=== PATIENT | female | born 1955 | race Caucasian/White ===

== ENCOUNTER → 2021-08-08 11:59 | Outpatient (CLI) | payer MEDICARE, OTHER, SELFPAY ==
--- NOTE | ~2021-08-08 | US_ITS ---
EXAMINATION: US thyroid DATE: 08/08/2021 12:24 INDICATION: Enlarged thyroid. TECHNIQUE: Multiple ultrasound images of the thyroid were obtained. COMPARISON: None. FINDINGS: The right thyroid lobe measures 6.4 x 2.0 x 2.0 cm. The left thyroid lobe measures 5.3 x 1.5 x 1.7 c m. In the left thyroid lobe, there is a 10 mm solid, hypoechoic, wider than tall nodule with smooth margin without echogenic foci (TI-RADS TR4). In the left thyroid lobe, there is a 7 mm solid, hypoech oic, wider than tall nodule with smooth margin without echogenic foci (TR4). In the right thyroid lob e, there is a 12 mm solid, isoechoic, wider than tall nodule with ill-defined margin without echogeni c foci (TR3). In the right thyroid lobe, there is an 8 mm solid, hypoechoic, wider than tall nodule w ith ill-defined margin without echogenic foci (TR4). There are other subcentimeter nodules in the thy roid. IMPRESSION: 1. Multinodular goiter. Thyroid ultrasound is recommended in one year. Reviewed, dictated and finalized at location A.
== END ==
PROVIDERS: PCP Nurse Practitioner Family
DX: E04.9 Nontoxic goiter, unspecified (principal)
CPT/HCPCS: 76536

== ENCOUNTER 2024-12-02 11:19 | Outpatient (CLI) | payer MEDICARE, OTHER, SELFPAY ==
--- NOTE | ~2024-12-02 | US_ITS ---
EXAMINATION: US thyroid DATE: 12/02/2024 11:40 INDICATION: Thyroid nodule. TECHNIQUE: Multiple ultrasound images of the thyroid were obtained. COMPARISON: Thyroid ultrasound 08/08/2021 FINDINGS: The right thyroid lobe measures 6.3 x 1.7 x 2.0 cm. The left thyroid lobe measures 5.2 x 1.8 x 1.7 cm. In the left thyroid lobe, there is a 10 mm solid, hypoechoic, wider than tall nodule with ill-defined margin without echogenic foci (TI-RADS TR4). In the left thyroid lobe, there is an 8 mm solid, h ypoechoic, wider than tall nodule with smooth margin without echogenic foci (TR4). In the right thyroid lobe, there is a 1.1 cm solid, hypoechoic, wider than tall nodule with ill-defined margin without echogenic foci (TR4), worsened from 08/08/2021. There are multiple subcentimeter nodules. IMPRESSION: 1. Thyroid nodules. Thyroid ultrasound is recommended in one year. Reviewed, dictated and finalized at location E.
== END 2024-12-02 11:20 | disposition home or self-care (01) ==
PROVIDERS: PCP Nurse Practitioner; Visit Provider Nurse Practitioner
DX: E04.2 Nontoxic multinodular goiter (principal)
CPT/HCPCS: 76536